=== PATIENT | male | born 1960 | race Two or more races ===

== ENCOUNTER 2023-03-12 23:14 | Inpatient (IN) | payer BC ==
[~2023-03-12] VITALS: Ht 165.1 cm; Wt 63.6 kg
[2023-03-12 23:47] LABS: BASOPHILS % (AUTO) 0.2 % (0-1); EOSINOPHILS % (AUTO) 0.3 % (0-6); HEMATOCRIT 30.7 % (42.0-52.0); HEMOGLOBIN 10.2 g/dl (14.0-17.9); LYMPHOCYTES # (AUTO) 1.3 X10'3 (1.1-4.8); LYMPHOCYTES % (AUTO) 13.3 % (21-51); MEAN CORPUSCULAR HEMOGLOBIN 29.4 PG (27.0-31.0); MEAN CORPUSCULAR HGB CONC 33.2 g/dL (33.0-36.5); MEAN CORPUSCULAR VOLUME 88.5 FL (78-98); MEAN PLATELET VOLUME 9.7 FL (7.4-10.4); MONOCYTES # (AUTO) 0.7 X10'3 (0-0.9); MONOCYTES % (AUTO) 7.2 % (2-12); NEUTROPHILS # (AUTO) 7.8 X10'3 (1.8-7.7); PLATELET COUNT 199 X10'3 (140-440); RED BLOOD COUNT 3.47 X10'6 (4.70-6.10); RED CELL DISTRIBUTION WIDTH 13.8 % (11.5-14.5); WHITE BLOOD COUNT 9.8 X10'3 (4.5-11.0)
[2023-03-12 23:50] LABS: CLARITY,URINE CLEAR (Clear); COLOR,URINE YELLOW (Yellow); GLUCOSE, URINE NEGATIVE (Neg); KETONES,URINE TRACE mg/dl (Neg); LEUKOCYTE ESTERASE ,URINE NEGATIVE (Neg); NITRITES, URINE NEGATIVE (Neg); OCCULT BLOOD,URINE NEGATIVE (Neg); PROTEIN,URINE NEGATIVE (Neg); UROBILINOGEN,URINE 0.2 E.U/dL (0.2-1.0)
[2023-03-12 23:58] LABS: UA COLLECTION TYPE CLN CATCH MIDSTREAM
[2023-03-12 23:59] LABS: ALANINE AMINOTRANSFERASE 23 U/L (12-78); ALBUMIN 2.6 G/DL (3.4-5.0); ALBUMIN/GLOBULIN RATIO 0.9 (1.1-1.5); ALKALINE PHOSPHATASE 48 IU/L (46-116); ANION GAP 8 (8-16); ASPARTATE AMINO TRANSFERASE 24 U/L (10-37); BILIRUBIN,TOTAL 0.6 MG/DL (0.1-1.0); BLOOD UREA NITROGEN 21 MG/DL (7-18); BUN/CREATININE RATIO 27.6 (10.0-20.0); CHLORIDE 109 MMOL/L (99-107); CREATININE 0.76 MG/DL (0.60-1.10); GLUCOSE 165 MG/DL (70-104); POTASSIUM 4.7 MMOL/L (3.5-5.1); SODIUM 140 MMOL/L (135-145); TOTAL CARBON DIOXIDE 23.1 MMOL/L (24-32); TOTAL PROTEIN 5.5 G/DL (6.4-8.2); eGFR > 90 ML/MIN
[2023-03-13] VITALS (15 sets, daily range): BP systolic 95–124; BP diastolic 55–73
--- NOTE | 2023-03-13 00:52 | NUR ---
PATIENT UP TO BEDSIDE COMMODE ON HIS OWN. MEDIUM AMOUNT OF BLOODY STOOLS. PATIENT DENIES FEELING OR EXPERIENCING SYNCOPAL EPISODE DURING BM.
[2023-03-13] MEDS ORDERED: pantoprazole 40MG/NS 100ML BAG 100 ML IV SCH (01:00)
[2023-03-13] MEDS ORDERED: diphenhydrAMINE 50 mg/ml inj IV PRN (01:15)
[2023-03-13] MEDS ORDERED: morphine 2 MG/ML inj. syringe IV PRN (01:15)
[2023-03-13] MEDS ORDERED: mag hydrox/Alum hydrox/simeth 30ml oral suspension PO PRN (01:15)
[2023-03-13] MEDS ORDERED: acetaminophen 325mg tablet PO PRN (01:15)
[2023-03-13] MEDS: normal saline 1000ml 1,000 ML IV SCH ×3 (01:15→21:15)
[2023-03-13] MEDS ORDERED: acetaminophen 650mg rectal suppository RC PRN (01:15)
[2023-03-13] MEDS ORDERED: diphenhydrAMINE 25mg capsule PO PRN (01:15)
[2023-03-13] MEDS ORDERED: ondansetron 4mg rapidly disintigrating tab PO PRN (01:15)
[2023-03-13] MEDS ORDERED: magnesium hydroxide 30ml (MOM) UD suspension PO PRN (01:15)
[2023-03-13 01:37] LABS: HEMOGLOBIN A1C 5.9 % (4.5-6.2)
[2023-03-13 01:40] LABS: PHOSPHORUS 2.2 MG/DL (2.3-4.5)
[2023-03-13] MEDS ORDERED: tranexamic acid inj. 1,000 MG in normal saline 100ml IV soln 90 ML IV ONE (01:40)
[2023-03-13 02:02] LABS: CREATINE KINASE 92 U/L (39-308); ETHANOL < 0.010 GM/DL (0.0-0.010); LIPASE 262 U/L (73-393)
[2023-03-13 02:03] LABS: URINE AMPHETAMINE SCREEN NEGATIVE (Neg); URINE BARBITUATE SCREEN NEGATIVE (Neg); URINE BENZODIAZEPINES SCREEN NEGATIVE (Neg); URINE CANNABINOID SCREEN NEGATIVE (Neg); URINE COCAINE SCREEN NEGATIVE (Neg); URINE METHADONE SCREEN NEGATIVE (Neg); URINE OPIATE SCREEN NEGATIVE (Neg); URINE PHENCYCLIDINE SCREEN NEGATIVE (Neg)
[2023-03-13 02:21] LABS: APTT 24 SECONDS (22-32)
--- NOTE | 2023-03-13 03:46 | NUR ---
Call to pharmacy regarding TXA - Pharmacy currently making medication.
[2023-03-13] MEDS ORDERED: LISI5TAB22 PO (04:27)
[2023-03-13] MEDS ORDERED: ATOR10TA70 PO (04:27)
[2023-03-13] MEDS: pantoprazole 40MG/NS 100ML BAG 100 ML IV SCH ×4 (06:29→22:27)
[2023-03-13] MEDS: docusate sod 100mg capsule PO SCH ×2 (08:00→20:00)
[2023-03-13 11:27] LABS: BASOPHILS # (AUTO) 0.1 X10'3 (0-0.2); BASOPHILS % (AUTO) 0.5 % (0-1); EOSINOPHILS % (AUTO) 0.3 % (0-6); HEMATOCRIT 23.9 % (42.0-52.0); HEMOGLOBIN 7.7 g/dl (14.0-17.9); LYMPHOCYTES # (AUTO) 1.5 X10'3 (1.1-4.8); LYMPHOCYTES % (AUTO) 12.3 % (21-51); MEAN CORPUSCULAR HEMOGLOBIN 28.8 PG (27.0-31.0); MEAN CORPUSCULAR HGB CONC 32.3 g/dL (33.0-36.5); MEAN CORPUSCULAR VOLUME 89.1 FL (78-98); MEAN PLATELET VOLUME 10.7 FL (7.4-10.4); MONOCYTES # (AUTO) 0.8 X10'3 (0-0.9); MONOCYTES % (AUTO) 6.7 % (2-12); NEUTROPHILS # (AUTO) 9.8 X10'3 (1.8-7.7); NEUTROPHILS % (AUTO) 80.2 % (42-75); PLATELET COUNT 175 X10'3 (140-440); RED BLOOD COUNT 2.68 X10'6 (4.70-6.10); RED CELL DISTRIBUTION WIDTH 13.8 % (11.5-14.5); WHITE BLOOD COUNT 12.2 X10'3 (4.5-11.0)
[2023-03-13 11:38] LABS: OCCULT BLOOD STOOL POSITIVE (Neg)
[2023-03-13] MEDS ORDERED: LIDOcaine Viscous 15ml cup ONE (11:42)
[2023-03-13] MEDS ORDERED: fentaNYL/PF 50MCG/1 ML 2ML syringe ONE (11:42)
[2023-03-13] MEDS ORDERED: MIDAZolam 1 MG/ML 5ML VIAL ONE (11:42)
[2023-03-13 11:49] LABS: LARGE PLATELETS FEW; PLATELET ESTIMATE NORMAL
--- NOTE | 2023-03-13 12:12 | NUR ---
PAGER ID: [phone] MESSAGE: [id number] Dillon Ricci: rr called. 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 last h&H 7.7/23.9. now he is responsive. last bp103/73 hr now 64. please advise. thanks amanda [phone]
[2023-03-13 13:18] LABS: HEMOGLOBIN 7.5 g/dl (14.0-17.9); MEAN CORPUSCULAR HEMOGLOBIN 29.1 PG (27.0-31.0); MEAN CORPUSCULAR HGB CONC 32.6 g/dL (33.0-36.5); MEAN CORPUSCULAR VOLUME 89.1 FL (78-98); MEAN PLATELET VOLUME 10.1 FL (7.4-10.4); PLATELET COUNT 164 X10'3 (140-440); RED BLOOD COUNT 2.58 X10'6 (4.70-6.10); RED CELL DISTRIBUTION WIDTH 13.9 % (11.5-14.5); WHITE BLOOD COUNT 12.2 X10'3 (4.5-11.0)
--- NOTE | 2023-03-13 13:30 | NUR ---
picked up by BHARGAV morrissey RN.
[2023-03-13] MEDS ORDERED: PEG 3350/Na sulf,bicarb,Cl/KCl oral sol 4 liter bottle PO ONE (14:35)
--- NOTE | 2023-03-13 15:03 | NUR ---
Charting by Carrie NELSON reviewed by Sarah Garcia RN
--- NOTE | 2023-03-13 18:34 | NUR ---
Problems reprioritized. Patient report given, questions answered & plan of care reviewed with GIDEON, RN.
[2023-03-13 19:29] LABS: HEMATOCRIT 26.2 % (42.0-52.0); HEMOGLOBIN 8.5 g/dl (14.0-17.9); MEAN CORPUSCULAR HEMOGLOBIN 28.8 PG (27.0-31.0); MEAN CORPUSCULAR HGB CONC 32.4 g/dL (33.0-36.5); MEAN CORPUSCULAR VOLUME 88.8 FL (78-98); MEAN PLATELET VOLUME 10.4 FL (7.4-10.4); PLATELET COUNT 153 X10'3 (140-440); RED BLOOD COUNT 2.95 X10'6 (4.70-6.10); WHITE BLOOD COUNT 10.8 X10'3 (4.5-11.0)
[2023-03-13] MEDS ORDERED: temazepam 15mg capsule PO PRN (21:00)
[2023-03-13] MEDS: acetaminophen 325mg tablet PO PRN (22:27)
[2023-03-13] MEDS: ondansetron/PF 4mg/2ml inj IV PRN ×2 (22:27→22:31)
[2023-03-14] VITALS (22 sets, daily range): BP systolic 89–118; BP diastolic 52–66
[2023-03-14] MEDS: pantoprazole 40MG/NS 100ML BAG 100 ML IV SCH ×4 (01:00→20:00)
[2023-03-14 02:55] LABS: BASOPHILS % (AUTO) 0.4 % (0-1); EOSINOPHILS # (AUTO) 0.2 X10'3 (0-0.9); EOSINOPHILS % (AUTO) 1.5 % (0-6); HEMATOCRIT 23.6 % (42.0-52.0); HEMOGLOBIN 7.7 g/dl (14.0-17.9); LYMPHOCYTES # (AUTO) 3.2 X10'3 (1.1-4.8); LYMPHOCYTES % (AUTO) 29.9 % (21-51); MEAN CORPUSCULAR HEMOGLOBIN 28.7 PG (27.0-31.0); MEAN CORPUSCULAR HGB CONC 32.6 g/dL (33.0-36.5); MEAN CORPUSCULAR VOLUME 88.1 FL (78-98); MEAN PLATELET VOLUME 10.8 FL (7.4-10.4); MONOCYTES % (AUTO) 9.1 % (2-12); NEUTROPHILS # (AUTO) 6.2 X10'3 (1.8-7.7); NEUTROPHILS % (AUTO) 59.1 % (42-75); PLATELET COUNT 140 X10'3 (140-440); RED BLOOD COUNT 2.67 X10'6 (4.70-6.10); RED CELL DISTRIBUTION WIDTH 13.8 % (11.5-14.5); WHITE BLOOD COUNT 10.6 X10'3 (4.5-11.0)
[2023-03-14 03:04] LABS: ALANINE AMINOTRANSFERASE 17 U/L (12-78); ALBUMIN 2.2 G/DL (3.4-5.0); ALKALINE PHOSPHATASE 33 IU/L (46-116); ANION GAP 6 (8-16); ASPARTATE AMINO TRANSFERASE 11 U/L (10-37); BILIRUBIN,TOTAL 0.7 MG/DL (0.1-1.0); BLOOD UREA NITROGEN 14 MG/DL (7-18); BUN/CREATININE RATIO 18.4 (10.0-20.0); CALCIUM 7.3 MG/DL (8.5-10.1); CHLORIDE 113 MMOL/L (99-107); CHOLESTEROL 69 MG/DL (0-200); CREATININE 0.76 MG/DL (0.60-1.10); GLUCOSE 99 MG/DL (70-104); HDL CHOLESTEROL 23 MG/DL (35-60); LDL CHOLESTEROL 34 MG/DL (50-100); POTASSIUM 3.4 MMOL/L (3.5-5.1); SODIUM 142 MMOL/L (135-145); TOTAL CARBON DIOXIDE 22.8 MMOL/L (24-32); TOTAL PROTEIN 4.4 G/DL (6.4-8.2); TRIGLYCERIDES 124 MG/DL (20-135); eGFR > 90 ML/MIN
--- NOTE | 2023-03-14 03:27 | NUR ---
Pt. is awake alert oriented on Protonix gtt and NS infusion. C/o frequent bowel movements after drinking Golytely. Stools are liquid maroon color with small clots. pt. encouraged to drink as much as possible. Total intake 2500 ml with no further clots. Pt. states cannot drink anymore and c/o abd pain. Able to use urinal at bedside and bedpan. Medicated with tylenol and zofran as needed. Resting quietly overnight. 0200 Labs drawn H/H 7.7/23.6. Has current Type and Screen. Pt. is NPO for Colonoscopy in am.
[2023-03-14] MEDS: docusate sod 100mg capsule PO SCH ×2 (06:34→19:45)
[2023-03-14] MEDS: normal saline 1000ml 1,000 ML IV SCH ×2 (07:15→16:28)
[2023-03-14 07:33] LABS: HEMATOCRIT 22.7 % (42.0-52.0); HEMOGLOBIN 7.6 g/dl (14.0-17.9); MEAN CORPUSCULAR HEMOGLOBIN 29.5 PG (27.0-31.0); MEAN CORPUSCULAR HGB CONC 33.4 g/dL (33.0-36.5); MEAN CORPUSCULAR VOLUME 88.4 FL (78-98); MEAN PLATELET VOLUME 10.2 FL (7.4-10.4); PLATELET COUNT 138 X10'3 (140-440); RED BLOOD COUNT 2.57 X10'6 (4.70-6.10); RED CELL DISTRIBUTION WIDTH 13.9 % (11.5-14.5); WHITE BLOOD COUNT 8.9 X10'3 (4.5-11.0)
--- NOTE | 2023-03-14 07:59 | NUR ---
PAGER ID: [phone] MESSAGE: [id number] Sonu Ricci 3.4 would you like the protocol started or a x1 dose? thank you! amanda [phone]
[2023-03-14] MEDS ORDERED: PEG 3350/Na sulf,bicarb,Cl/KCl oral sol 4 liter bottle PO ONE (08:55)
[2023-03-14] MEDS: acetaminophen 325mg tablet PO PRN (09:43)
[2023-03-14] MEDS ORDERED: fentaNYL/PF 50MCG/1 ML 2ML syringe ONE (12:07)
[2023-03-14] MEDS ORDERED: MIDAZolam 1 MG/ML 5ML VIAL ONE ×2 (12:07)
--- NOTE | 2023-03-14 16:16 | NUR ---
patient back from GI lab. VSS. no complaints.
[2023-03-14 16:48] LABS: MEAN CORPUSCULAR HEMOGLOBIN 29.3 PG (27.0-31.0); MEAN CORPUSCULAR HGB CONC 33.3 g/dL (33.0-36.5); MEAN CORPUSCULAR VOLUME 88.1 FL (78-98); MEAN PLATELET VOLUME 11.1 FL (7.4-10.4); PLATELET COUNT 140 X10'3 (140-440); RED BLOOD COUNT 2.09 X10'6 (4.70-6.10); RED CELL DISTRIBUTION WIDTH 14.2 % (11.5-14.5); WHITE BLOOD COUNT 11.4 X10'3 (4.5-11.0)
[2023-03-14 17:02] LABS: HEMOGLOBIN 6.1 g/dl (14.0-17.9)
[2023-03-14 17:03] LABS: HEMATOCRIT 18.4 % (42.0-52.0)
--- NOTE | 2023-03-14 17:03 | NUR ---
PAGER ID: [phone] MESSAGE: [id number] Dillon Ricci: critical H&H 6.11/21.4 thank you! amanda [phone]
--- NOTE | 2023-03-14 18:21 | NUR ---
Problems reprioritized. Patient report given, questions answered & plan of care reviewed with Kamille, RN.
[2023-03-14] MEDS: ondansetron/PF 4mg/2ml inj IV PRN (19:54)
--- NOTE | 2023-03-14 20:00 | NUR ---
Pt. is awake drowsy oriented able to speak of today's event. Sitting upright eating clear liquid dinner. Peripheral IV intact x2. Pt. has blood transfusion infusing. States had a feeling of passing out earlier. BP 95/54 hr 66. Will keep on bedrest for now. Skin is cool and dry warm blankets applied Temp 97.6. Plan will recheck H/H every 6 hours as ordered. 2200 # 2 unit started as per prior order for H/H 6.4/19.1 . 0400 H/H 7.0 20.9 . Prior orders given to transfuse if Hg < 7.0 # 3 Unit of PRBC available when transfusion criteria is met. BP 105/53 hr 69. no c/o pain or discomfort.
[2023-03-14 22:47] LABS: MEAN CORPUSCULAR HEMOGLOBIN 29.8 PG (27.0-31.0); MEAN CORPUSCULAR HGB CONC 33.5 g/dL (33.0-36.5); MEAN CORPUSCULAR VOLUME 88.8 FL (78-98); MEAN PLATELET VOLUME 10.5 FL (7.4-10.4); PLATELET COUNT 112 X10'3 (140-440); RED BLOOD COUNT 2.14 X10'6 (4.70-6.10); RED CELL DISTRIBUTION WIDTH 14.3 % (11.5-14.5); WHITE BLOOD COUNT 10.6 X10'3 (4.5-11.0)
[2023-03-14 22:53] LABS: HEMOGLOBIN 6.4 g/dl (14.0-17.9)
[2023-03-15] VITALS (19 sets, daily range): BP systolic 95–129; BP diastolic 54–79
[2023-03-15] MEDS: normal saline 1000ml 1,000 ML IV SCH ×2 (03:15→13:15)
[2023-03-15 03:45] LABS: BASOPHILS % (AUTO) 0.4 % (0-1); EOSINOPHILS # (AUTO) 0.1 X10'3 (0-0.9); EOSINOPHILS % (AUTO) 1.2 % (0-6); LYMPHOCYTES % (AUTO) 27.2 % (21-51); MEAN CORPUSCULAR HEMOGLOBIN 29.9 PG (27.0-31.0); MEAN CORPUSCULAR HGB CONC 33.6 g/dL (33.0-36.5); MEAN PLATELET VOLUME 10.2 FL (7.4-10.4); NEUTROPHILS % (AUTO) 62.2 % (42-75); PLATELET COUNT 104 X10'3 (140-440); RED BLOOD COUNT 2.35 X10'6 (4.70-6.10); RED CELL DISTRIBUTION WIDTH 14.6 % (11.5-14.5); WHITE BLOOD COUNT 11.2 X10'3 (4.5-11.0)
[2023-03-15 03:51] LABS: HEMATOCRIT 20.9 % (42.0-52.0)
[2023-03-15 03:59] LABS: ALANINE AMINOTRANSFERASE 12 U/L (12-78); ALBUMIN 1.7 G/DL (3.4-5.0); ALKALINE PHOSPHATASE 27 IU/L (46-116); ANION GAP 5 (8-16); ASPARTATE AMINO TRANSFERASE 7 U/L (10-37); BILIRUBIN,TOTAL 0.9 MG/DL (0.1-1.0); BLOOD UREA NITROGEN 11 MG/DL (7-18); BUN/CREATININE RATIO 16.2 (10.0-20.0); CALCIUM 7.2 MG/DL (8.5-10.1); CHLORIDE 113 MMOL/L (99-107); CREATININE 0.68 MG/DL (0.60-1.10); GLUCOSE 91 MG/DL (70-104); POTASSIUM 3.6 MMOL/L (3.5-5.1); SODIUM 141 MMOL/L (135-145); TOTAL CARBON DIOXIDE 23.1 MMOL/L (24-32); TOTAL PROTEIN 3.4 G/DL (6.4-8.2); eGFR > 90 ML/MIN
[2023-03-15] MEDS: ondansetron/PF 4mg/2ml inj IV PRN (05:41)
[2023-03-15 07:13] LABS: HEMOGLOBIN 7.1 g/dl (14.0-17.9); MEAN CORPUSCULAR HEMOGLOBIN 30.3 PG (27.0-31.0); MEAN PLATELET VOLUME 10.5 FL (7.4-10.4); PLATELET COUNT 111 X10'3 (140-440); RED BLOOD COUNT 2.36 X10'6 (4.70-6.10); RED CELL DISTRIBUTION WIDTH 14.6 % (11.5-14.5); WHITE BLOOD COUNT 10.4 X10'3 (4.5-11.0)
[2023-03-15] MEDS: docusate sod 100mg capsule PO SCH ×2 (07:16→20:00)
[2023-03-15] MEDS: pantoprazole 40MG/NS 100ML BAG 100 ML IV SCH ×2 (07:16→21:53)
[2023-03-15] MEDS ORDERED: pantoprazole 40mg Tablet.DR PO SCH (07:30)
--- NOTE | 2023-03-15 07:34 | NUR ---
PAGER ID: [phone] MESSAGE: [id number] COMFORT S: BRENT... critical hct 21. hgb is 7.1. talked to nm and blood loss scan will be this afternoon. thanks! amanda [phone]
[2023-03-15] MEDS ORDERED: heparin sodium, porcine/PF 100unit/ml 5ML syringe ONE (08:00)
--- NOTE | 2023-03-15 10:00 | NUR ---
Patient picked up by RN for nuc med. blood infusing.
[2023-03-15 12:55] LABS: HEMATOCRIT 22.6 % (42.0-52.0); HEMOGLOBIN 7.5 g/dl (14.0-17.9); MEAN CORPUSCULAR HEMOGLOBIN 31.1 PG (27.0-31.0); MEAN CORPUSCULAR HGB CONC 33.4 g/dL (33.0-36.5); MEAN CORPUSCULAR VOLUME 93.4 FL (78-98); MEAN PLATELET VOLUME 10.2 FL (7.4-10.4); PLATELET COUNT 95 X10'3 (140-440); RED BLOOD COUNT 2.42 X10'6 (4.70-6.10); RED CELL DISTRIBUTION WIDTH 16.3 % (11.5-14.5); WHITE BLOOD COUNT 13.9 X10'3 (4.5-11.0)
[2023-03-15 15:26] LABS: HEMATOCRIT 22.1 % (42.0-52.0); HEMOGLOBIN 7.3 g/dl (14.0-17.9); MEAN CORPUSCULAR HEMOGLOBIN 30.9 PG (27.0-31.0); MEAN CORPUSCULAR HGB CONC 32.9 g/dL (33.0-36.5); MEAN CORPUSCULAR VOLUME 93.9 FL (78-98); MEAN PLATELET VOLUME 10.4 FL (7.4-10.4); PLATELET COUNT 111 X10'3 (140-440); RED BLOOD COUNT 2.36 X10'6 (4.70-6.10); RED CELL DISTRIBUTION WIDTH 15.6 % (11.5-14.5); WHITE BLOOD COUNT 15.4 X10'3 (4.5-11.0)
--- NOTE | 2023-03-15 15:31 | NUR ---
PAGER ID: [phone] MESSAGE: [id number] sophia, s: h&h .. patient is currently having another bm. thanks! amanda [phone]
--- NOTE | 2023-03-15 16:37 | NUR ---
PAGER ID: [phone] MESSAGE: [id number] Dillon Ricci: would you like me to change the frequency of the hemograms? thank you! amanda [phone]
--- NOTE | 2023-03-15 18:41 | NUR ---
Problems reprioritized. Patient report given, questions answered & plan of care reviewed with AMOS Pinto.
--- NOTE | 2023-03-15 18:44 | NUR ---
Patient in room PCU 3010. I have received report from Jessa TRINIDAD and had the opportunity to ask questions and assume patient care.
[2023-03-15] MEDS: HYDROcodone/acetaminophen 5mg/325mg tablet PO PRN ×2 (19:10→23:07)
[2023-03-15 21:21] LABS: HEMATOCRIT 23.6 % (42.0-52.0); HEMOGLOBIN 7.8 g/dl (14.0-17.9); MEAN CORPUSCULAR HEMOGLOBIN 30.7 PG (27.0-31.0); MEAN CORPUSCULAR VOLUME 93.1 FL (78-98); MEAN PLATELET VOLUME 10.6 FL (7.4-10.4); PLATELET COUNT 101 X10'3 (140-440); RED BLOOD COUNT 2.54 X10'6 (4.70-6.10); RED CELL DISTRIBUTION WIDTH 14.3 % (11.5-14.5); WHITE BLOOD COUNT 19.2 X10'3 (4.5-11.0)
[2023-03-16] MEDS: normal saline 1000ml 1,000 ML IV SCH ×2 (01:00→08:48)
[2023-03-16 02:00] VITALS: BP 106/57
[2023-03-16 06:34] LABS: BASOPHILS # (AUTO) 0.1 X10'3 (0-0.2); BASOPHILS % (AUTO) 0.3 % (0-1); EOSINOPHILS # (AUTO) 0.3 X10'3 (0-0.9); LYMPHOCYTES # (AUTO) 3.5 X10'3 (1.1-4.8); LYMPHOCYTES % (AUTO) 20.5 % (21-51); MEAN CORPUSCULAR HEMOGLOBIN 30.5 PG (27.0-31.0); MEAN CORPUSCULAR HGB CONC 32.8 g/dL (33.0-36.5); MEAN CORPUSCULAR VOLUME 92.8 FL (78-98); MEAN PLATELET VOLUME 11.3 FL (7.4-10.4); MONOCYTES # (AUTO) 1.5 X10'3 (0-0.9); MONOCYTES % (AUTO) 8.5 % (2-12); NEUTROPHILS # (AUTO) 11.8 X10'3 (1.8-7.7); NEUTROPHILS % (AUTO) 68.7 % (42-75); PLATELET COUNT 94 X10'3 (140-440); RED BLOOD COUNT 2.09 X10'6 (4.70-6.10); RED CELL DISTRIBUTION WIDTH 14.5 % (11.5-14.5); WHITE BLOOD COUNT 17.2 X10'3 (4.5-11.0)
[2023-03-16 07:00] VITALS: BP 114/61
[2023-03-16 07:00] LABS: ALANINE AMINOTRANSFERASE 12 U/L (12-78); ALBUMIN 1.6 G/DL (3.4-5.0); ALBUMIN/GLOBULIN RATIO 1.1 (1.1-1.5); ALKALINE PHOSPHATASE 26 IU/L (46-116); ANION GAP 7 (8-16); ASPARTATE AMINO TRANSFERASE 16 U/L (10-37); BILIRUBIN,TOTAL 0.5 MG/DL (0.1-1.0); BLOOD UREA NITROGEN 20 MG/DL (7-18); BUN/CREATININE RATIO 25.6 (10.0-20.0); CALCIUM 7.4 MG/DL (8.5-10.1); CHLORIDE 113 MMOL/L (99-107); CREATININE 0.78 MG/DL (0.60-1.10); GLUCOSE 108 MG/DL (70-104); POTASSIUM 3.7 MMOL/L (3.5-5.1); SODIUM 142 MMOL/L (135-145); TOTAL CARBON DIOXIDE 22.1 MMOL/L (24-32); TOTAL PROTEIN 3.1 G/DL (6.4-8.2); eGFR > 90 ML/MIN
[2023-03-16 07:16] LABS: HEMATOCRIT 19.4 % (42.0-52.0); HEMOGLOBIN 6.4 g/dl (14.0-17.9)
--- NOTE | 2023-03-16 07:22 | NUR ---
Problems reprioritized. Patient report given, questions answered & plan of care reviewed with Jorden TRINIDAD.
--- NOTE | 2023-03-16 07:23 | NUR ---
critical HGB of 6.4 with results paged to MD at this time
[2023-03-16] MEDS: docusate sod 100mg capsule PO SCH (08:00)
[2023-03-16 08:04] VITALS: BP 106/68
[2023-03-16] MEDS: pantoprazole 40MG/NS 100ML BAG 100 ML IV SCH (08:45)
[2023-03-16 11:46] VITALS: BP 121/74
[2023-03-16] MEDS ORDERED: pantoprazole 40mg Tablet.DR PO SCH (20:00)
== END 2023-03-16 14:30 | disposition home or self-care (01) | DRG 368 ==
LOC: ER 23:15 → ED HOLD 03-13 01:18 → PCU 3S 03-13 07:00
PROVIDERS: ADMIT Family Medicine; ATTEND Family Medicine
PROC: 30233N1 Transfusion of Nonautologous Red Blood Cells into Peripheral Vein, Percutaneous Approach (ICD-10-PCS; principal; 2023-03-13)
PROC: 0DB68ZX Excision of Stomach, Via Natural or Artificial Opening Endoscopic, Diagnostic (ICD-10-PCS; 2023-03-13)
PROC: 0DB78ZX Excision of Stomach, Pylorus, Via Natural or Artificial Opening Endoscopic, Diagnostic (ICD-10-PCS; 2023-03-13)
PROC: 0DB48ZX Excision of Esophagogastric Junction, Via Natural or Artificial Opening Endoscopic, Diagnostic (ICD-10-PCS; 2023-03-13)
PROC: 0DJD8ZZ Inspection of Lower Intestinal Tract, Via Natural or Artificial Opening Endoscopic (ICD-10-PCS; 2023-03-14)
DX: K21.01 Gastro-esophageal reflux disease with esophagitis, with bleeding (principal); K29.71 Gastritis, unspecified, with bleeding; D62 Acute posthemorrhagic anemia; E86.1 Hypovolemia; I10 Essential (primary) hypertension; I95.1 Orthostatic hypotension; D69.6 Thrombocytopenia, unspecified; K44.9 Diaphragmatic hernia without obstruction or gangrene; E78.00 Pure hypercholesterolemia, unspecified; K64.8 Other hemorrhoids; Z79.82 Long term (current) use of aspirin
CPT/HCPCS: 36415; 36430; 43239; 45378; 78278; 80053; 80061; 80305; 80320; 81003; 82272; 82550; 83036; 83690; 83735; 83880; 84100; 84443; 84484; 85008; 85025; 85027; 85610; 85730; 86885; 86900; 86901; 86920; 87081; 93005; 99152; 99285; A4620; A9560; C9113; G0378; J1200; J1642; J2250; J2405; J3010; J3490; J7030; J7040; P9016; Q0163

== ENCOUNTER 2023-10-30 05:50 | Day surgery (SDC) | payer BC ==
[2023-10-23 15:03] LABS: BILIRUBIN,URINE NEGATIVE (Neg); CLARITY,URINE CLEAR (Clear); COLOR,URINE YELLOW (Yellow); GLUCOSE, URINE NEGATIVE (Neg); KETONES,URINE NEGATIVE (Neg); LEUKOCYTE ESTERASE ,URINE NEGATIVE (Neg); NITRITES, URINE NEGATIVE (Neg); OCCULT BLOOD,URINE NEGATIVE (Neg); PH,URINE 5.5 (4.8-8.0); PROTEIN,URINE NEGATIVE (Neg); UROBILINOGEN,URINE 0.2 E.U/dL (0.2-1.0)
[2023-10-23 15:05] LABS: BASOPHILS # (AUTO) 0.1 X10'3 (0-0.2); BASOPHILS % (AUTO) 0.8 % (0-1); EOSINOPHILS # (AUTO) 0.2 X10'3 (0-0.9); EOSINOPHILS % (AUTO) 3.6 % (0-6); LYMPHOCYTES % (AUTO) 32.7 % (21-51); MEAN CORPUSCULAR HEMOGLOBIN 21.7 PG (27.0-31.0); MEAN PLATELET VOLUME 9.4 FL (7.4-10.4); MONOCYTES # (AUTO) 0.6 X10'3 (0-0.9); MONOCYTES % (AUTO) 9.1 % (2-12); NEUTROPHILS # (AUTO) 3.3 X10'3 (1.8-7.7); NEUTROPHILS % (AUTO) 53.8 % (42-75); PRE OP HEMATOCRIT 37.6 % (42.0-52.0); PRE OP HEMOGLOBIN 11.6 g/dL (14.0-17.9); PRE OP PLATELET COUNT 230 X10'3 (140-440); PRE OP WHITE BLOOD COUNT 6.2 10'3 (4.8-10.8); RED BLOOD COUNT 5.37 X10'6 (4.70-6.10); RED CELL DISTRIBUTION WIDTH 19.6 % (11.5-14.5)
[2023-10-23 15:07] LABS: UA COLLECTION TYPE NON-SPECIFIED
[2023-10-23 15:31] LABS: ALBUMIN 3.9 G/DL (3.4-5.0); BLOOD UREA NITROGEN 10 MG/DL (7-18); BUN/CREATININE RATIO 9.3 (10.0-20.0); CALCIUM 9.2 MG/DL (8.5-10.1); CHLORIDE 104 MMOL/L (99-107); CREATININE 1.08 MG/DL (0.60-1.10); PRE OP ANION GAP 7 (8-16); PRE OP GLUCOSE 89 MG/DL (70-104); PRE OP POTASSIUM 4.2 MMOL/L (3.4-5.1); PRE OP SODIUM 138 MMOL/L (135-145); TOTAL CARBON DIOXIDE 27.2 MMOL/L (24-32); eGFR 69 ML/MIN
[2023-10-23 15:42] LABS: PLATELET ESTIMATE NORMAL
[2023-10-23 15:43] LABS: ACANTHOCYTES FEW; ANISOCYTOSIS 2+; ELLIPTOCYTES FEW; MICROCYTOSIS 1+
[2023-10-23 15:55] LABS: ALKALINE PHOSPHATASE 106 IU/L (46-116); PRE OP ALT 26 U/L (30-65); PRE OP AST 25 U/L (10-37)
[2023-10-30] VITALS (21 sets, daily range): BP systolic 131–180; BP diastolic 72–110; PULSE 68–102; RESP 12–27; TEMP 98.7; O2SAT 96–100
[~2023-10-30] VITALS: Ht 165.1 cm; Wt 72.1 kg
[~2023-10-30 05:50] MED LIST: ALBU8HFA INH; APIX5TAB3 PO; ATOR10TA70 PO; B 12; CALCIUM + D3; D 3; GLUCOSAMINE; LISI5TAB22 PO; MULT-1085 PO; PANT40TA54 PO; SUPER B COMPLEX; cefazolin 2gm/D5W 100mL 100 ML IV ONE; famotidine 20mg tablet PO ONE; ringers solution, lacted 1,000 ML IV SCH
[2023-10-30] MEDS ORDERED: BUPIVAcaine/PF 2.5mg/ml (0.25%) 10ml vial ONE (08:29)
[2023-10-30] MEDS ORDERED: midazolam 1 mg/ML 2ml injection ONE (08:39)
[2023-10-30] MEDS ORDERED: fentaNYL /PF 50mcg/ml 5ml ampule ONE (08:40)
[2023-10-30] MEDS ORDERED: ondansetron/PF 4mg/2ml inj IV PRN (10:00)
[2023-10-30] MEDS ORDERED: proCHLORperazine 10 MG/2 ml inj IV PRN (10:00)
[2023-10-30] MEDS ORDERED: ketorolac tromethamine 15mg/ml inj. IV ONE (10:00)
[2023-10-30] MEDS ORDERED: morphine 4 MG/ML inj SYRINge IV PRN (10:00)
[2023-10-30] MEDS ORDERED: meperidine/PF 25mg/ml syringe IV PRN ×3 (10:00)
[2023-10-30] MEDS ORDERED: acetaminophen 1,000mg/100ml IV 100 ML IV ONE (10:00)
[2023-10-30] MEDS ORDERED: morphine 2 MG/ML inj. syringe IV PRN (10:00)
[2023-10-30] MEDS ORDERED: ringers solution, lacted 1,000 ML IV SCH (10:00)
[2023-10-30] MEDS ORDERED: hydrALAZINE 20mg/ml inj. IV PRN (10:00)
[2023-10-30] MEDS ORDERED: labetalol 20mg/4ml (5mg/ml) syringe IV PRN (10:00)
[2023-10-30] MEDS ORDERED: dexamethasone sod phosphate 4mg/ml inj. ONE (10:10)
[2023-10-30] MEDS ORDERED: ondansetron/PF 4mg/2ml inj ONE (10:10)
[2023-10-30] MEDS ORDERED: propofol inj 20 ML IV ONE (10:10)
[2023-10-30] MEDS ORDERED: rocuronium 10mg/ml inj IV ONE (10:11)
[2023-10-30] MEDS ORDERED: LIDOcaine 2% (20mg/ml) 5ml vial ONE (10:11)
[2023-10-30] MEDS ORDERED: BUPIVAcaine/PF 2.5mg/ml (0.25%) 10ml vial IJ ONE (10:31)
[2023-10-30] MEDS ORDERED: sugammadex 200mg/2ml injection IV ONE (11:16)
[2023-10-30] MEDS ORDERED: neostigmine methylsulfate 1 MG/ML 10ml vial ONE (11:18)
[2023-10-30] MEDS ORDERED: glycopyrrolate 0.2mg/ml inj ONE (11:18)
[2023-10-30] MEDS ORDERED: HYDROcodone/acetaminophen 5mg/325mg tablet PO STA (14:22)
== END 2023-10-30 15:27 | disposition home or self-care (01) ==
LOC: PAS 05:50
PROVIDERS: ATTEND Surgery
PROC: 8E0W4CZ Robotic Assisted Procedure of Trunk Region, Percutaneous Endoscopic Approach (ICD-10-PCS; 2023-10-30)
PROC: 0YU54JZ Supplement Right Inguinal Region with Synthetic Substitute, Percutaneous Endoscopic Approach (ICD-10-PCS; principal; 2023-10-30 09:41)
DX: K40.90 Unilateral inguinal hernia, without obstruction or gangrene, not specified as recurrent (principal); Z00.00 Encounter for general adult medical examination without abnormal findings; I10 Essential (primary) hypertension; Z87.19 Personal history of other diseases of the digestive system; Z86.718 Personal history of other venous thrombosis and embolism; R12 Heartburn
CPT/HCPCS: 36415; 49650; 80053; 81003; 82948; 85008; 85025; 93005; C1781; J0131; J0690; J1100; J1885; J2175; J2250; J2405; J2704; J2710; J3010; J3490; J7030; J7120; S2900; Z7506; Z7508; Z7512; A4215; A4618; C1758